=== PATIENT | male | born 2005 | race Two or more races ===

== ENCOUNTER 2025-02-22 10:02 | Emergency (ER) | payer MEDICAID ==
[~2025-02-22] VITALS: Ht 175.3 cm; Wt 75.0 kg
[2025-02-22 10:03] VITALS: BP 155/77; PULSE 88; RESP 18; O2SAT 99
[2025-02-22] MEDS: BACITRACIN ZINC OINT UDPKT TOP ONE (10:27)
[2025-02-22] MEDS: LIDOCAINE HCL 1% 20ML VIAL INFIL ONE (10:27)
== END 2025-02-22 11:36 | disposition home or self-care (01) ==
LOC: ER 10:16
DX: S01.111A Laceration without foreign body of right eyelid and periocular area, initial encounter (principal); W22.8XXA Striking against or struck by other objects, initial encounter; Y93.89 Activity, other specified; Y92.89 Other specified places as the place of occurrence of the external cause; Y99.8 Other external cause status
CPT/HCPCS: 12013; 99283; J2003; Z7610